=== PATIENT | male | born 1955 | race Caucasian/White ===

== ENCOUNTER → 2023-10-03 18:26 | Outpatient (REF) | payer MEDICARE, OTHER, SELFPAY | LOC: PAVMRI 18:26 | PROVIDERS: ATTENDING PHYSICIAN Specialist; FAMILY PHYSICIAN Registered Nurse | DX: S46.212A Strain of muscle, fascia and tendon of other parts of biceps, left arm, initial encounter (principal) | CPT/HCPCS: 73221 ==

== ENCOUNTER → 2025-03-25 08:53 | Outpatient (REF) | payer MEDICARE, OTHER, SELFPAY ==
[2025-03-25 09:29] LABS: Hematocrit 53.5 % (39.0-52.0); Hemoglobin 18.4 g/dL (13.0-18.0); Mean Corp Hgb Conc. 34.4 g/dL (33.0-37.0); Mean Corpuscular Volume 88.3 fL (80.0-94.0); Nucleated Red Blood Cells % 0 % (-); Platelet Count 181 10^3/uL (130-400); Red Cell Dist. Width 12.5 % (11.5-14.5)
[2025-03-25 09:38] LABS: INR 1.66; PT 19.8 Sec (11.4-14.6)
[2025-03-25 09:49] LABS: ALT (SGPT) 26 U/L (0-50); AST (SGOT) 26 U/L (17-59); Albumin 4.3 g/dl (3.5-5.0); Alkaline Phosphatase 54 U/L (38-126); Blood Urea Nitrogen 20 mg/dl (9-20); Calcium 9.3 mg/dl (8.4-10.2); Carbon Dioxide 30 mmol/L (22-30); Chloride 106 mmol/L (98-107); Glucose 106 mg/dl (70-99); Magnesium 2.3 mg/dl (1.6-2.3); Potassium 4.4 mmol/L (3.5-5.1); Sodium 138 mmol/L (135-145); Total Protein 7.8 g/dl (6.3-8.2); eGFR > 60.00
== END ==
LOC: SDSPAT 08:53
PROVIDERS: ATTENDING PHYSICIAN Internal Medicine Cardiovascular Disease; FAMILY PHYSICIAN Family Medicine; OTHER PHYSICIAN Internal Medicine Cardiovascular Disease
DX: I48.91 Unspecified atrial fibrillation (principal)
CPT/HCPCS: 36415; 75572; 80053; 83735; 85025; 85610; 86850; 86900; 86901; 93005; Q9967

== ENCOUNTER 2025-04-09 06:04 | Day surgery (SDC) | payer MEDICARE, OTHER, SELFPAY ==
[2025-03-25 13:28] VITALS: BMI 28.3
[2025-04-09] VITALS (16 sets, daily range): BP systolic 103–153; BP diastolic 73–130; BMI 28.1
--- NOTE | 2025-04-09 07:16 | ITS.CL.ABL ---
[facility] - Ablation
Ablation
Procedure Report:
Primary [facility] Seal: Dr Ariel Treviño
Procedure Date: 04/09/2025
Patient History:
Patient is a pleasant 70 year old male with a past medical history of hypertension, colon CA, and symptomatic persistent atrial fibrillation.
See H&P for complete details.
Indication:
Symptomatic persistent atrial fibrillation
Early recurrence following cardioversion
Arrhythmia Specific History:
Prior Medical Therapies for Rate and Rhythm Control:
X Beta-justyn
[ ] Calcium channel-justyn
[ ] Amiodarone
[ ] Dronederone
[ ] Sotalol
[ ] Flecainide
[ ] Dofetilide
[ ] Options limited by bradycardia
[ ] Options limited by comorbid renal disease
Prior Procedural Therapies for AF/AFL:
X Cardioversion
[ ] Pulmonary Vein Isolation
[ ] Posterior Wall Isolation
[ ] Additional lines (Specify)
[ ] Surgical Jo-MAZE or PVI (Specify)
Procedure Performed:
X AF ablation procedure (27843) -- includes LA/CS pacing, trans-septal, 3D mapping, + ICE
[ ] +IV drug (84251)
[ ] +Other Arrhythmia (16434)
[ ] +Other AF Line/ablation (35834)
Risks and expected recovery has been explained in detail. Alternative options have been explored, and in a shared-decision making fashion we have decided that this was the most appropriate procedure.
Method
NPO status confirmed. Grounding pad applied. Defibrillator pads applied. Continuous surface ECG, pulse oximetry, and blood pressure were monitored. Procedure was performed under general anesthesia, with anesthesia services.
Both groins were clipped, prepped with Chloraprep, and draped in sterile fashion. Time out was called. Local anesthesia administered with bupivacaine. The right femoral vein was accessed for catheter placement, using ultrasound guidance (images
saved to record), micro-puncture needle/wire, and modified seldinger technique. 3 sheaths were placed. The following catheters were used:
[ ] Tacticath SE (D/F Curve) ablation catheter
X Viewflex 9Fr ICE catheter
X Inquiry decapolar 6Fr diagnostic catheter
[ ] CRD Hex 6Fr
X FlexCath Contour 10 Fr with PulseSelect PFA Catheter
X Advisor HD Grid Mapping Catheter, SE
[ ] Acuson AcuNav 8 Fr ICE catheter
[ ]Other: [ ]
Intracardiac ultrasound (ICE) was carefully advanced into the right atrium to guide sheath placement over a J-wire, catheter placement, guide trans-septal puncture, identify potential complications, identify anatomic structures and ensure proper
contact between ablation catheter and tissue.
Heparin was given prior to trans-septal puncture. Heparin was given to achieve and maintain a target ACT of 300-400 seconds throughout the procedure.
Trans-septal access was performed under ICE guidance. The trans-septal puncture was performed with a SafeSept wire through a Brockenbrough needle assembly through the steerable sheath. The wire was visualized as it entered the LSPV and system
advanced under ICE guidance and fluoroscopy into the LA. The Brockenbrough needle assembly, SafeSept wire and sheath dilator were removed under negative pressure. LA pressure was measured and recorded.
A 200 J synchronized direct-current cardioversion was performed yarsanism of sinus rhythm. Patient maintained sinus rhythm throughout procedure. ICE and 3D mapping was performed to identify relevant cardiac structures. A careful 3D map was
created to assess for regions of low-voltage and abnormal electrogram signals using HD grid mapping catheter and PulseSelect catheter. Additional mapping was performed as outlined below.
Prior to ablation, glycopyrrolate was provided. PulseSelect catheter was advanced over J-wire to the ostium of each vein. Pulmonary vein isolation was performed with ostial and antral lesions in a circumferential manner. Contact was visualized via
EAM, ICE, fluoroscopy, and EGM signals.
Following completion of ablation lesions, a post-ablation voltage/activation map was performed in sinus rhythm. Entrance and exit block were confirmed for each vein.
Catheter and sheath were removed from the left atrium and post-ablation intracardiac echo evaluation was consistent with pre-ablation with no changes and no pericardial effusion and there is no left atrial thrombus or left ventricle thrombus seen.
Electrophysiology study was performed. Hemostasis was obtained with figure of 8 stitch for each groin and with manual pressure. Protamine was used for reversal.
Estimated Blood Loss
5 mL
Complications
None
Fluoroscopy: 4.3 minutes; 73.9 mGy; DAP 9.96
LA Pressure: Pre 6 mmHg, post 7 mmHg
Baseline Intervals:
Rhythm: SR
FL: 219 ms
QRS: 99 ms
QT: 450 ms
Post-Procedure Intervals:
FL: 196 ms
QRS: 109 ms
QT: 428 ms
AVWB: 390 ms
AVNERP: 600/240 ms
AERP: 600/240 ms
Recommendations
- Bedrest with straight-leg precautions as ordered
- Anticipate same day discharge if patient meeting clinical metrics
- Resume home medications as indicated
- Ok to resume anticoagulation tonight if patient and groin sites stable
- Plan for follow-up in office as scheduled
Jose Martines, DO, FACC, RS
Clinical [employer]
cc: Dr Ariel Treviño; Dr Colt Buck
[2025-04-09 08:46] LABS: ACT-LR - POC 376 Seconds (116-155)
[2025-04-09 08:59] LABS: ACT-LR - POC 393 Seconds (116-155)
[2025-04-09 09:16] LABS: ACT-LR - POC 390 Seconds (116-155)
[2025-04-09 09:36] LABS: ACT-LR - POC 295 Seconds (116-155)
[2025-04-09 09:57] LABS: ACT-LR - POC 342 Seconds (116-155)
[2025-04-09 10:03] LABS: ACT-LR - POC 170 Seconds (116-155)
--- NOTE | 2025-04-09 14:30 | W.PN.UPDATE ---
Update Note
Progress Note Update
Pt seen post PFA. Right groin site without ht/bleeding, oob ambulating. Post EKG NSR, no acute changes. Resume xarelto tonight. Followup with Dr. Treviño as scheduled. Home today if groin site/tele remain stable.
== END 2025-04-09 15:30 | disposition home or self-care (01) ==
LOC: CATH 06:04
PROVIDERS: ATTENDING PHYSICIAN Internal Medicine Cardiovascular Disease; FAMILY PHYSICIAN Family Medicine; OTHER PHYSICIAN Internal Medicine Cardiovascular Disease
DX: I48.19 Other persistent atrial fibrillation (principal); I10 Essential (primary) hypertension; N40.0 Benign prostatic hyperplasia without lower urinary tract symptoms; D75.1 Secondary polycythemia; Z90.49 Acquired absence of other specified parts of digestive tract; Z85.038 Personal history of other malignant neoplasm of large intestine; Z79.01 Long term (current) use of anticoagulants; Z79.899 Other long term (current) drug therapy; R91.1 Solitary pulmonary nodule
CPT/HCPCS: C1733; C1766; C1732; C1894; C1730; C1769; C1892; 85347; 86900; 86901; 93005; 93656